=== PATIENT | female | born 1935 | race Caucasian/White ===

== ENCOUNTER 2016-11-13 06:45 | Observation (INO) ==
--- NOTE | 2016-11-13 07:28 | Emergency Department Note ---
Zoran Guido Rolonda, am scribing for, and in the presence of, Adan De Luna MD 07: 16. Annamarie Guido James D, MD, personally performed the services described in this documentation, ascribed by Libia Meehan in my presence, and it is both accurate and complete [id number] . Arrival - Arrival Chief Complaint: Non-Specific Stated Complaint: ask pt ED Nursing Triage Note: pt to triage via wc with c/o needing blood transfusion, pt states she has leukemia and has to have blood transfusion weekly. pt states she has been in [place] since july and has been home for two weeks. pt has no complaints of anything, denies weakness, dizziness, no pain. denies any bleeding. Mode of Arrival: Wheelchair Limitations: No Limitations Source: Patient, Old Records Reviewed, RN Notes Reviewed - History of Present Illness HPI Narrative: Pt is an 81 y/o female who presents to the ED with c/o needing transfusion with an onset of weeks. Pt has a PMHx of leukemia. Pt states that her last Tx was in [place] at [facility]'s x2 weeks ago and that her last blood transfusion was last Friday and she gets them every Friday. Pt states that her blood count was stated to be down to 8 and was checked by Hospice on Friday. Pt denies fever and dysuria. She is f/u by Dr. Simmons. Pt is of limited historical value and has no exact knowledge of her diagnosis other than "leukemia". No other history available. Onset (ago): week(s) Consistency: constant Severity: moderate Severity scale (1-10): 5 Allergies/Adverse Reactions: Allergies Allergy/AdvReac Type Severity Reaction Status Date / Time No Known Allergies Allergy Unverified 11/13/16 07:00 Review of System - Review of System 12 point system: reviewed and no additional remarkable complaints except as stated - Review of System Constitutional: Absent: chills, fever Eyes: Absent: discharge Head/Ears/Nose/Throat: Absent: earache Respiratory: Absent: cough Cardiovascular: Absent: chest pain Gastrointestinal: Absent: abdominal pain Genitourinary female: Absent: dysuria Musculoskeletal: Absent: arm pain, back pain Skin: Absent: rash Neurological: Absent: headache, weakness Psychiatric: Absent: anxiety Endocrine: Present: other ("needs transfusion") Hematological/Lymphatic: Absent: easy bleeding Allergic/Immunologic: Absent: facial swelling Medical,Surgical,& Family Hx - Medical History Neurology: No history of: Seizures Hematology: History of: Anemia (leukemia) - Social History Smoking Status: Never smoker Frequency of Alcohol Use: None Type of Drug Use: None Exam Vital Signs: Vital Signs Temperature 98.6 F 11/13/16 06:56 Pulse Rate 90 11/13/16 08:30 Respiratory Rate 16 11/13/16 08:30 Blood Pressure 150/75 11/13/16 08:30 O2 Sat by Pulse Oximetry 98 11/13/16 08:30 GENERAL: This is a well-nourished well-developed slightly pale white female in no apparent distress. VITAL SIGNS: Reviewed HEENT: Head is atraumatic and normocephalic. Pupils are equal round react to light. Extraocular movements are intact. Oropharynx is benign with moist mucous membranes. NECK: Neck is soft and supple without tenderness. There are no masses. There is no lymphadenopathy. LUNGS: Lungs are clear to auscultation. Chest rises symmetrically. There is no chest wall tenderness. CV: Heart is regular rate and rhythm without murmurs rubs or gallops. ABDOMEN: Abdomen is soft, nontender to palpation. There are no abdominal abnormal masses palpated. There is no organomegaly. Bowel sounds are present and active. SKIN: Skin is warm and dry. No rash. EXTREMITIES: Patient has full range of motion without tenderness. There is no pedal edema. NEUROLOGIC: Awake alert and oriented 4. Cranial nerves II through XII are grossly intact. Motor is 5 over 5 in all extremities bilaterally. Course - Consultations Consultation #1: Discussed with hospitalist. Patient will be admitted to their service. Time: 07:57 Results - Labs CBC & BMP: 11/13/16 07:19 Lab Results: I have reviewed the patients labs - Diagnostic Findings Procedure: Chest x-ray: image reviewed by me (No cardiomegaly, no pleural effusions, no infiltrates.) Disposition Clinical Impression: Pancytopenia, Myelodysplastic syndrome Case discussed with: patient, patient's family Disposition: Still a Patient Condition: Stable Time of Disposition: 07:53
[2016-11-13 07:29] LABS: Eosinophils % 2.3 % (0.00-10.9); Hematocrit 21.8 VOL% (35.7-47.0); Hemoglobin 7.5 GM/DL (12.0-16.0); Lymphocytes # 0.4 10*3/uL (1.4-4.0); Lymphocytes % 42.5 % (21.3-54.2); Mean Corpuscular HGB Conc 34.4 GM/DL (32-36); Mean Corpuscular Hemoglobin 29 PG (27-34); Mean Corpuscular Volume 83.2 FL (87-102); Monocytes # 0.1 10*3/uL (0.11-0.8); Monocytes % 10.3 % (1.7-12.7); Neutrophils # 0.4 10*3/uL (1.4-7.4); Neutrophils % 44.9 % (38.7-73.9); Platelet Count 15 T/CUMM (130-400); Red Blood Count 2.62 MC/CUMM (3.8-5.5); Red Cell Distribution Width 15.7 % (9.3-17.3)
[2016-11-13 07:42] LABS: White Blood Count 0.9 T/CUMM (4-12)
[2016-11-13 07:44] LABS: PT Patient Result 10.6 SECS; Partial Thromboplastin Time 36.2 SECS (0-40)
[2016-11-13 07:50] LABS: Hypochromasia 1+; Lymphocytes 100 % (20-55); Platelet Estimate Decreased; Total Cells Counted 100
[2016-11-13 07:51] LABS: Atypical Lymphocytes Few; Microcytosis 1+; Ovalocytes Slight
--- NOTE | 2016-11-13 08:10 | XRay Report ---
XR chest 2V Indication: Pancytopenia Comparison: None Technique: Frontal and lateral views of the chest. Findings: Heart size within normal limits. Chronic/granulomatous change without focal consolidation, pleural effusion, or pneumothorax. Diffuse osteopenia IMPRESSION: No acute cardiopulmonary process demonstrated. PROCEDURE INTERPRETED AT [facility] DEPARTMENT OF RADIOLOGY Final Report Signed by: Dr Philippe Sabillon
[2016-11-13] MEDS ORDERED: SODIUM CHLORIDE 0.9% 250 ML IV PRN (08:32)
[2016-11-13] MEDS ORDERED: ONDANSETRON 4 MG/2 ML VIAL IV PRN (08:34)
[2016-11-13] MEDS ORDERED: ACETAMINOPHEN 325 MG TABLET PO PRN (08:34)
[2016-11-13 08:45] LABS: Albumin 3.1 G/DL (3.4-5.0); Bilirubin,Total 0.5 MG/DL (0.2-1.0); Calcium 8.4 MG/DL (8.5-10.1); Osmolality,Calculated 291.4 MOS/KG (273-304); Potassium 4.6 MMOL/L (3.5-5.1); Total Protein 6.2 G/DL (6.4-8.3)
[2016-11-13] MEDS ORDERED: PANTOPRAZOLE 40 MG TABLET PO SCH (09:00)
--- NOTE | 2016-11-13 09:51 | Hospitalist History & Physical ---
Assessment and Plan (1) Pancytopenia Status: Acute Assessment and plan: This patient is grossly pancytopenic. She comes in today for transfusion. [facility] and we will transfuse with 2 units of packed red blood cells as needed. Will consider consulting oncology for follow-up. Current Visit: Yes (2) Diabetes mellitus Status: Acute Assessment and plan: Accu-Cheks before meals at bedtime. Sliding scale as needed. Current Visit: Yes (3) Myelodysplastic syndrome Status: Acute Assessment and plan: Patient has been treated for 3 months at [facility] in [place]. She has been home for 2 weeks on hospice though she is unable to name her hospice company. I have asked case management to research her hospice company so that we can determine who her primary care provider is. This patient will likely need several rounds of transfusion throughout the course of her disease. It may be prudent to consult hematology/oncology for further recommendations with this patient. Current Visit: Yes History of Present Illness Chief complaint: pancytopenia History of present illness: Ms. Shultz is a 81 year old white female with a past medical history significant for myelodysplastic syndrome, diabetes mellitus, age-related macular degeneration, diabetic neuropathy who presents to the emergency room today with pancytopenia 2 weeks status post chemotherapy. Patient reports that in July of this year, she was found to have "bad blood" after removal of gallstones via ERCP at [facility]. Patient states that she elected to receive treatment at [facility] in [place] where she stayed for 3 months and received several rounds of chemotherapy and radiation with 2 bone marrow tests. The patient reports that she was told that her condition had progressed to leukemia and there was no further management likely to result with any benefit to mortality. It was at that time the patient decided to come back home on hospice. The patient is unable to tell me the name of her hospice company. On Friday, the patient's hospice nurse found her to be pancytopenic and suggested that she come to the hospital for transfusion. On admission, the patient is completely asymptomatic. She tells me that she never feels any differently but she has been receiving transfusions every Friday. She denies headache, blurry vision, chest pain, pain on inspiration, hematuria, bleeding per rectum, lower extremity edema. Hematology reveals WBC 0.9, RBC 2.62, hemoglobin 7.5, hematocrit 21.8, MCV 83.2 , platelets 15. Chemistry panel reveals sodium 140, potassium 4.6, chloride 108 , BUN 25, creatinine 1.1, serum glucose 266. Case has been discussed with both Dr. De Luna and Dr. Jorge the patient will be admitted to the hospital medicine service for observation transfusion. Patient has voiced to me that she does not wish to have any life-saving attempts made in the event that she should stop breathing or heart starts beating. She tells me that her granddaughter is her power of pressing machine tender. Home medications will be reviewed and reconciled. Home Medications Medication Instructions Recorded Confirmed Type Calcium Carbonate 500 mg PO BID 11/13/16 11/13/16 History Cefpodoxime [Vantin] 200 mg PO Q12HR 11/13/16 11/13/16 History Cholecalciferol [Vitamin D3] 1,250 mg PO BID 11/13/16 11/13/16 History Fluconazole Tab [Diflucan Tab] 200 mg PO DAILY 11/13/16 11/13/16 History Gabapentin Cap/Tab [Neurontin 300 mg PO TID 11/13/16 11/13/16 History Cap/Tab] Magnesium Oxide 500 mg PO BID 11/13/16 11/13/16 History Melatonin 3 mg PO BEDTIME PRN 11/13/16 11/13/16 History Multivit-Min/FA/Lutein/Zeaxant 1 each PO BID 11/13/16 11/13/16 History [Icaps Mv Tablet] Omeprazole 40 mg PO DAILY 11/13/16 11/13/16 History Tizanidine HCl [Zanaflex] 4 mg PO DAILY PRN 11/13/16 11/13/16 History glipiZIDE [Glipizide] 0.5 tablet PO DAILY 11/13/16 11/13/16 History predniSONE TAB [PredniSONE] 0.5 tablet PO DAILY 11/13/16 11/13/16 History traMADol TAB [Ultram] 50 mg PO Q6H PRN 11/13/16 11/13/16 History valACYclovir [Valtrex] 500 mg PO DAILY 11/13/16 11/13/16 History Allergies Allergy/AdvReac Type Severity Reaction Status Date / Time No Known Allergies Allergy Verified 11/13/16 08:58 Medical,Surgical,& Family Hx - Medical History Neurology: No history of: Seizures Hematology: History of: Anemia (leukemia) - Surgical History Reproductive Surgeries: Surgical HX of;: Hysterectomy - Family History Family History: Reports;: Family Cancer, Family Diabetes, Family Heart Disease - Social History Smoking Status: Never smoker Frequency of Alcohol Use: None Type of Drug Use: None Marital Status: Lives With:: Alone Functional capacity: uses cane/walker - Constitutional Constitutional: Present: weakness. Absent: chills, fever(s), headache(s) - EENT Eyes: Present: other (Macular degeneration). Absent: blurry vision - Cardiovascular Cardiovascular: Absent: chest pain at rest, dyspnea, edema, palpitations - Respiratory Respiratory: Absent: cough, wheezing, pain on inspiration - Gastrointestinal Gastrointestinal: Present: change in bowel habits (Alternating constipation and diarrhea.). Absent: abdominal pain, hematemesis, hematochezia, melena - Genitourinary Genitourinary: Absent: dysuria, hematuria - Neurological Neurological: Absent: dizziness - Psychiatric Psychiatric: Present: depression. Absent: anxiety, suicidal ideation - Endocrine Endocrine: Absent: fatigue Exam - Constitutional Vitals: Period Temp Pulse Resp BP Sys/Wetzel Pulse Ox Last 24 Hr 98.6 F-98.6 F 89-97 16-20 137-163/59-77 97-99 Exam: General appearance: normal weight, no acute distress - Head Head exam: Present: normocephalic, atraumatic - Eye Eye exam: Present: EOMI. Absent: conjunctival injection, nystagmus Pupils: Present: ZEINAB, normal accommodation - ENT ENT exam: Present: normal exam, normal external ear exam - Neck Neck exam: Present: normal inspection. Absent: lymphadenopathy, tenderness, thyromegaly - Respiratory Respiratory exam: Present: clear to auscultation bilaterally. Absent: rales, rhonchi, wheezes - Cardiovascular Cardiovascular exam: Present: regular rate and rhythm. Absent: carotid bruit, gallop, rubs - GI/Abdominal GI/Abdominal exam: Present: normal bowel sounds. Absent: ascites, distended, mass - Extremities Exam Extremities exam: Present: normal inspection, normal capillary refill. Absent: edema - Back Exam Back exam: Absent: CVA tenderness (L), CVA tenderness (R) - Neurological Exam Neurological exam: Present: alert, oriented X3, CN II-XII intact, reflexes normal - Psychiatric Psychiatric exam: Present: normal affect, normal mood - Skin Skin exam: Present: normal color, warm, dry Results - Labs CBC & BMP: 11/13/16 07:19 11/13/16 07:19 Lab Results: I have reviewed the past 24 hour labs
[2016-11-13] MEDS ORDERED: GLUCAGON 1 MG VIAL IM PRN (10:28)
[2016-11-13] MEDS ORDERED: DEXTROSE 50% 25 GM/50 ML SYRINGE IV PRN (10:28)
[2016-11-13] MEDS ORDERED: MELATONIN 3 MG TABLET PO PRN (10:40)
[2016-11-13] MEDS ORDERED: tiZANidine 4 MG TABLET PO PRN (10:40)
[2016-11-13] MEDS ORDERED: traMADol 50 MG TABLET PO PRN (10:40)
[2016-11-13] MEDS: INSULIN LISPRO 100 UNIT/ML SUBCUT SCH ×3 (12:25→20:55)
[2016-11-13 16:33] LABS: Hematocrit 26.6 VOL% (35.7-47.0); Hemoglobin 9.1 GM/DL (12.0-16.0)
[2016-11-13 16:40] LABS: PT Patient Result 10.5 SECS
[2016-11-13] MEDS: GABAPENTIN 300 MG CAPSULE PO SCH ×2 (18:48→20:54)
[2016-11-13] MEDS: MULTIVITAMIN (OCUVITE) TABLET PO SCH (20:54)
[2016-11-13] MEDS: CALCIUM (CARBONATE)/VITAMIN D 500 MG-200 UNIT TABLET PO SCH (20:54)
[2016-11-13] MEDS ORDERED: CALCIUM (CARBONATE)/VITAMIN D 500 MG-200 UNIT TABLET PO SCH (21:00)
[2016-11-13] MEDS ORDERED: MAGNESIUM OXIDE 500 MG PO SCH (21:00)
[2016-11-13] MEDS ORDERED: CALCIUM (CARBONATE) 500 MG TABLET PO SCH (21:00)
[2016-11-13] MEDS ORDERED: VANTIN PO SCH (21:00)
[2016-11-14] MEDS: CALCIUM (CARBONATE)/VITAMIN D 500 MG-200 UNIT TABLET PO SCH ×2 (08:43→20:27)
[2016-11-14] MEDS: glipiZIDE 5 MG TABLET PO SCH (08:43)
[2016-11-14] MEDS: FLUCONAZOLE 200 MG TABLET PO SCH (08:43)
[2016-11-14] MEDS: predniSONE 5 MG TABLET PO SCH (08:43)
[2016-11-14] MEDS: INSULIN LISPRO 100 UNIT/ML SUBCUT SCH ×4 (08:43→20:29)
[2016-11-14] MEDS: GABAPENTIN 300 MG CAPSULE PO SCH ×3 (08:43→20:27)
[2016-11-14] MEDS: PANTOPRAZOLE 40 MG TABLET PO SCH (08:43)
[2016-11-14] MEDS: valACYclovir 500 MG TABLET PO SCH (08:43)
[2016-11-14] MEDS: MULTIVITAMIN (OCUVITE) TABLET PO SCH ×2 (08:43→20:27)
[2016-11-14 09:40] LABS: Hematocrit 28.2 VOL% (35.7-47.0); Hemoglobin 9.8 GM/DL (12.0-16.0); Immature Granulocytes % 0.9 %; Immature Granulocytes Absolute 0.01 #; Lymphocytes # 0.5 10*3/uL (1.4-4.0); Lymphocytes % 41.4 % (21.3-54.2); Mean Corpuscular HGB Conc 34.8 GM/DL (32-36); Mean Corpuscular Hemoglobin 30 PG (27-34); Mean Corpuscular Volume 85.7 FL (87-102); Monocytes # 0.2 10*3/uL (0.11-0.8); Monocytes % 16.2 % (1.7-12.7); Neutrophils # 0.5 10*3/uL (1.4-7.4); Neutrophils % 41.5 % (38.7-73.9); Red Blood Count 3.29 MC/CUMM (3.8-5.5); Red Cell Distribution Width 16.3 % (9.3-17.3); White Blood Count 1.1 T/CUMM (4-12)
[2016-11-14 09:43] LABS: Platelet Count 15 T/CUMM (130-400)
[2016-11-14 09:59] LABS: Band Neutrophils 10 % (0-10); Eosinophils 10 % (0-10); Hypochromasia 2+; Lymphocytes 40 % (20-55); Microcytosis 1+; Platelet Estimate Decreased; Segmented Neutrophils 40 % (50-85); Total Cells Counted 100
--- NOTE | 2016-11-14 18:36 | Hospitalist Progress Note ---
Hospitalist: Subjective Interval history: 81 yo WF with h/o myelodysplastic syndrome, subsequently developed acute lymphocytic leukemia, was treated at [facility] with chemotherapy and radiation but failed that she was advised to go under hospice. She was under hospice and then came to the ER because of anemia and got a blood transfusion. She states that she never feels better after getting any blood transfusion, apparently she is getting blood transfusion every 2 weeks. Her granddaughter is her power of research attorney per her statement and she is in [place]. Family would like to take opinion from a commercial lines insurance agent regarding blood transfusions. Exam - Constitutional Vitals: Period Temp Pulse Resp BP Sys/Wetzel Pulse Ox Last 24 Hr 97.2 F-98.3 F 83-92 18-85 133-166/61-70 93-98 Exam: General: No Acute Distress HEENT: Anemia Neck: Supple, No JVD Chest: Clear to auscultation B/L CV: S1 + S2 audible without murmur, gallop or rub Abd: soft, NT, Non-distended, BS + Ext: No edema Skin: No purpura, bruising or rash Rheumatologic: No Joint deformities Neurologic: Strength 5/5 all extremities, no gross sensory deficits Results - Labs CBC & BMP: 11/14/16 09:02 11/13/16 07:19 - Impressions Assessment and Plan (1) Acute lymphocytic leukemia pancytopenia Status: Acute Assessment and plan: Her prognosis is guarded. Will consult hematology Dr. Schultz for further recommendations per family wishes. Current Visit: Yes (2) Diabetes mellitus Status: Acute Assessment and plan: Accu-Cheks before meals at bedtime. Sliding scale as needed. Current Visit: Yes
[2016-11-15 06:28] LABS: Eosinophils # 0.1 10*3/uL (0.0-0.87); Eosinophils % 3.9 % (0.00-10.9); Hematocrit 26.4 VOL% (35.7-47.0); Hemoglobin 9.2 GM/DL (12.0-16.0); Immature Granulocytes % 0.8 %; Immature Granulocytes Absolute 0.01 #; Lymphocytes # 0.4 10*3/uL (1.4-4.0); Lymphocytes % 32.3 % (21.3-54.2); Mean Corpuscular HGB Conc 34.8 GM/DL (32-36); Mean Corpuscular Hemoglobin 30 PG (27-34); Mean Corpuscular Volume 84.9 FL (87-102); Mean Platelet Volume 11.2 FL (9.6-12.0); Monocytes # 0.3 10*3/uL (0.11-0.8); Monocytes % 22.8 % (1.7-12.7); Neutrophils # 0.5 10*3/uL (1.4-7.4); Neutrophils % 40.2 % (38.7-73.9); Red Blood Count 3.11 MC/CUMM (3.8-5.5); Red Cell Distribution Width 16.2 % (9.3-17.3); White Blood Count 1.3 T/CUMM (4-12)
[2016-11-15 06:45] LABS: Platelet Count 13 T/CUMM (130-400)
[2016-11-15 06:59] LABS: Calcium 8.7 MG/DL (8.5-10.1); Osmolality,Calculated 286.3 MOS/KG (273-304); Potassium 4.2 MMOL/L (3.5-5.1)
[2016-11-15 07:19] LABS: Eosinophils 6 % (0-10); Total Cells Counted 100
[2016-11-15 07:21] LABS: Atypical Lymphocytes Few; Band Neutrophils 5 % (0-10); Hypochromasia 1+; Lymphocytes 43 % (20-55); Microcytosis 1+; Ovalocytes Slight; Platelet Estimate Decreased; Segmented Neutrophils 36 % (50-85)
[2016-11-15] MEDS: INSULIN LISPRO 100 UNIT/ML SUBCUT SCH ×2 (08:05→12:54)
[2016-11-15] MEDS: CALCIUM (CARBONATE)/VITAMIN D 500 MG-200 UNIT TABLET PO SCH (09:47)
[2016-11-15] MEDS: MULTIVITAMIN (OCUVITE) TABLET PO SCH (09:47)
[2016-11-15] MEDS: FLUCONAZOLE 200 MG TABLET PO SCH (09:47)
[2016-11-15] MEDS: PANTOPRAZOLE 40 MG TABLET PO SCH (09:47)
[2016-11-15] MEDS: predniSONE 5 MG TABLET PO SCH (09:47)
[2016-11-15] MEDS: valACYclovir 500 MG TABLET PO SCH (09:47)
[2016-11-15] MEDS: glipiZIDE 5 MG TABLET PO SCH (09:48)
[2016-11-15] MEDS: GABAPENTIN 300 MG CAPSULE PO SCH (09:48)
--- NOTE | 2016-11-15 10:31 | Oncology Progress Note ---
Oncology Subjective PN Interval history: Patient with myelodysplastic syndrome diagnosed by bone marrow July 2016. This was ordered by me and results were discussed in my office with the patient and her family at that time. She was taken to [place] for several months of unsuccessful chemotherapy treatment. She was sent home last week with plans for home hospice. There is still debate whether or not she should receive transfusions and that is what prompted this hospitalization. Again I have had no contact with her for the last 4 months approximately until today Her 2 sons were present and her granddaughter was available via speaker phone. She is requiring significant and frequent transfusions to maintain adequate hemoglobin levels. There is still need to be family discussions regarding home hospice or not. I stated that I would be available to assist within reason should they desire further transfusions. She would probably need lab monitoring at least twice weekly. The case fitter was present and is aware of plans to pursue home lab testing. She appears chronically neutropenic and also thrombocytopenic . today's platelet level is 13,000 and I do not plan to pursue transfusion for this. I believe this would be medically futile Exam - Constitutional Vitals: Period Temp Pulse Resp BP Sys/Wetzel Pulse Ox Last 24 Hr 97.1 F-97.9 F 70-87 16-20 138-168/63-72 94-98 Results - Labs CBC & BMP: 11/15/16 06:14 11/15/16 06:14
[2016-11-15 11:38] VITALS: BP 141/64
--- NOTE | 2016-11-15 11:48 | Discharge Summary ---
Hospital Course - Hospital Course Hospital Course: 81 year old white female with a past medical history significant for myelodysplastic syndrome, diabetes mellitus, age-related macular degeneration, diabetic neuropathy who presents to the emergency room with pancytopenia 2 weeks status post chemotherapy. Patient reported that in July of this year, she was found to have myelodysplastic syndrome after removal of gallstones via ERCP at [facility]. Patient stated that she elected to receive treatment at [facility] in [place] where she stayed for 3 months and received several rounds of chemotherapy and radiation with 2 bone marrow tests. The patient and family reported that she was told that her condition had progressed to acute lymphocytic leukemia and there was no further management likely to result with any benefit to mortality. It was at that time the patient decided to come back home on hospice. Few days ago the patient's hospice nurse found her to be pancytopenic and suggested that she come to the hospital for transfusion. On admission, the patient was completely asymptomatic. She received packed RBC transfusion with some improvement in her hematocrit. She is also thrombocytopenic but without evidence of any acute bleeding therefore plates of her not transfused. Questions were held with the family regarding further future plan about hospice or to get blood transfusions. Family requested to consult Dr. Schultz who is known to the patient and family. The family was given all the options they wanted to pursue. Initially patient decided to go home with home health with twice weekly blood draws. After further discussion among family members, patient has not decided to go home with hospice. mri manager Cece was present during all these discussions. The patient now wants to go home on hospice and comp field case manager is setting that up. Meanwhile the patient and family were told that if they change his mind and want to come off the hospice and get blood transfusion, they are more than welcome to do so and will be happy to take care of her if she chooses to go that route. Pt and family was appreciative about this. - Time spent with patient Time with patient DS: Less than 30 minutes Diagnosis - Discharge Diagnosis (1) Pancytopenia Status: Chronic (2) Myelodysplastic syndrome Status: Chronic Discharge Plan - Discharge Data Condition at Discharge: Stable Discharge Diet: advance to your usual diet Activity: resume usual activities as tolerated Hygiene: no restrictions Weight Bearing at Discharge: full weight bearing Driving: not until seen by doctor - Discharge Medications Continue Tizanidine HCl [Zanaflex] 4 mg PO DAILY PRN PRN Reason: Pain predniSONE TAB [PredniSONE] 0.5 tablet PO DAILY glipiZIDE [Glipizide] 0.5 tablet PO DAILY Gabapentin Cap/Tab [Neurontin Cap/Tab] 300 mg PO TID valACYclovir [Valtrex] 500 mg PO DAILY traMADol TAB [Ultram] 50 mg PO Q6H PRN PRN Reason: Pain Cefpodoxime [Vantin] 200 mg PO Q12HR Magnesium Oxide 500 mg PO BID Fluconazole Tab [Diflucan Tab] 200 mg PO DAILY Multivit-Min/FA/Lutein/Zeaxant [Icaps Mv Tablet] 1 each PO BID Omeprazole 40 mg PO DAILY Melatonin 3 mg PO BEDTIME PRN PRN Reason: Insomnia Calcium (Carb)/Vit D 500-200 [Oscal 500 + D] 1 tablet PO BID - Follow Up or Referral - Forms/Instructions Exam - Constitutional Vitals: Period Temp Pulse Resp BP Sys/Wetzel Pulse Ox Last 24 Hr 97.1 F-97.9 F 70-87 16-20 138-168/63-72 94-98 Exam: General: [No Acute Distress] HEENT: [Anemia] Neck: [Supple, No JVD] Chest: [Clear to auscultation B/L] CV: [S1 + S2 audible without murmur, gallop or rub] Abd: [soft, NT, Non-distended, BS +] Ext: [No edema] Skin: [No purpura, bruising or rash] Rheumatologic: [No Joint deformities] Neurologic: [Strength 5/5 all extremities, no gross sensory deficits] Discharge Results Labs on day of discharge: Labs from last 24 hours 11/15/16 11/15/16 11/15/16 11:19 07:39 06:14 WBC RBC Hgb Hct MCV MCH MCHC RDW Plt Count MPV Neut % (Auto) Lymph % (Auto) [place] % (Auto) Eos % (Auto) Baso % (Auto) Neut # (Auto) Lymph # (Auto) [place] # (Auto) Eos # (Auto) Baso # (Auto) Total Counted Immature Gran % Nucleated RBC % Immature Gran # Segmented Neutrophils Band Neutrophils Lymphocytes Monocytes Eosinophils Nucleated RBCs # Atypical Lymphocytes Platelet Estimate Immature Plt Fraction Hypochromasia Microcytosis Ovalocytes Morphology Comment Sodium 141 Potassium 4.2 Chloride 108 H Carbon Dioxide 26 Anion Gap 11.2 BUN 25 H Creatinine 1.00 GFR Calculation 57 BUN/Creatinine Ratio 25.00 H Glucose 131 H POC Glucose 147 H 149 H Calculated Osmolality 286.3 Calcium 8.7 11/15/16 11/14/16 11/14/16 06:14 19:00 16:08 WBC 1.3 L RBC 3.11 L Hgb 9.2 L Hct 26.4 L MCV 84.9 L MCH 30 MCHC 34.8 RDW 16.2 Plt Count 13 L* MPV 11.2 Neut % (Auto) 40.2 Lymph % (Auto) 32.3 [place] % (Auto) 22.8 H Eos % (Auto) 3.9 Baso % (Auto) 0.0 Neut # (Auto) 0.5 L Lymph # (Auto) 0.4 L [place] # (Auto) 0.3 Eos # (Auto) 0.1 Baso # (Auto) 0.0 Total Counted 100 Immature Gran % 0.8 Nucleated RBC % 0.0 Immature Gran # 0.01 Segmented Neutrophils 36 L Band Neutrophils 5 Lymphocytes 43 Monocytes 10 Eosinophils 6 Nucleated RBCs # 0.00 Atypical Lymphocytes Few Platelet Estimate Decreased Immature Plt Fraction 4.5 Hypochromasia 1+ Microcytosis 1+ Ovalocytes Slight Morphology Comment Sodium Potassium Chloride Carbon Dioxide Anion Gap BUN Creatinine GFR Calculation BUN/Creatinine Ratio Glucose POC Glucose 232 H 138 H Calculated Osmolality Calcium 11/14/16 11:47 WBC RBC Hgb Hct MCV MCH MCHC RDW Plt Count MPV Neut % (Auto) Lymph % (Auto) [place] % (Auto) Eos % (Auto) Baso % (Auto) Neut # (Auto) Lymph # (Auto) [place] # (Auto) Eos # (Auto) Baso # (Auto) Total Counted Immature Gran % Nucleated RBC % Immature Gran # Segmented Neutrophils Band Neutrophils Lymphocytes Monocytes Eosinophils Nucleated RBCs # Atypical Lymphocytes Platelet Estimate Immature Plt Fraction Hypochromasia Microcytosis Ovalocytes Morphology Comment Sodium Potassium Chloride Carbon Dioxide Anion Gap BUN Creatinine GFR Calculation BUN/Creatinine Ratio Glucose POC Glucose 219 H Calculated Osmolality Calcium DS: Provider Date of admission: 11/13/16 08:17 Primary care physician: . No PCP Attending physician on admission: Weston Jorge MD Discharging clinician: Evelin Yanez MD
== END 2016-11-15 14:35 | disposition hospice, home (50) ==
LOC: N.ED 06:45 → N.EDINP 06:45 → SUATTDRO 08:17 → N.4E 08:45
PROVIDERS: ADMIT Internal Medicine; ATTEND Hospitalist